=== PATIENT | female | born 1990 | race Two or more races ===

== ENCOUNTER → 2021-07-31 | Emergency (ER) | payer SELFPAY ==
[~2021-07-31] VITALS: Ht 162.6 cm; Wt 57.0 kg
[~2021-07-31] MED LIST: ACETAMINOPHEN 325MG TABLET PO ONE; IBUP-2029 MT; LORAZEPAM 0.5MG TABLET PO ONE
[2021-07-31 16:25] VITALS: BP 122/85
== END ==
LOC: ER 15:59
DX: R51.9 Headache, unspecified (principal); S16.1XXA Strain of muscle, fascia and tendon at neck level, initial encounter; V49.9XXA Car occupant (driver) (passenger) injured in unspecified traffic accident, initial encounter; Y93.89 Activity, other specified; Y92.89 Other specified places as the place of occurrence of the external cause; Y99.8 Other external cause status
CPT/HCPCS: 99284